=== PATIENT | male | born 1990 | race Caucasian/White ===

== ENCOUNTER 2022-08-04 13:31 | Outpatient (CLI) | payer OTHER, SELFPAY ==
--- NOTE | 2022-08-04 14:00 | CRLHL7_ITS ---
For Patients: As a result of the Century Cures Act, medical imaging exams and procedure reports are released immediately into your electronic medical record. You may view this report before your referring provider. If you have questions, please contact your health care provider. INDICATION: Left neck swelling. COMPARISON: None. TECHNIQUE: CT soft tissues neck with IV contrast. FINDINGS: A marker has been placed on the mobile homes repairer images on the left neck over the area of palpable abnormality. Correlating with the CT images (series 3, image 44) there is no evidence of a mass, cystic lesion or focal inflammatory change in the left neck. There is a small normal size level 5 lymph node which measures 9 mm in maximal diameter (series 3, image 43). There is uncertain if this can account for the palpable abnormality. Normal bilateral parotid and submandibular glands. Normal thyroid gland. Scattered small normal-sized cervical lymph nodes bilaterally. No supraclavicular or spina mediastinal adenopathy. Nasopharynx and oropharynx are clear. No inflammation within the parapharyngeal fat pads are Rich intradural space. Normal thickness of the epiglottis. Normal glottis with symmetric vocal cords. Lung apices are clear. Normal alignment of cervical spine. No prevertebral soft tissue swelling. Visualized paranasal sinuses and mastoid air cells are clear. IMPRESSION: 1. At the level of the marker on the left neck, there is no discrete mass or cystic lesion or focal inflammation. Small normal-sized left level 5 lymph node. 2. No adenopathy elsewhere. 3. Normal deep soft tissues of the neck. Please note that all CT scans at this facility use dose modulation, iterative reconstruction, and/or weight-based dosing when appropriate to reduce radiation dose to as low as reasonably achievable. Dictated by Lacho Maki MD @ 08/05/2022 12:25:54 PM (Electronically Signed)
== END 2022-08-04 13:32 | disposition home or self-care (01) ==
LOC: CT 13:31
PROVIDERS: PCP Family Medicine; Visit Provider Family Medicine
DX: R22.1 Localized swelling, mass and lump, neck (principal); R59.9 Enlarged lymph nodes, unspecified
CPT/HCPCS: 70491; Q9967

== ENCOUNTER 2023-08-01 14:00 | Outpatient (CLI) | payer OTHER, SELFPAY ==
--- OUTSIDE RECORDS SUMMARY | 2023-08-01 14:10 | XMS_ITS | Clinical Summary ---
Author Organization [facility] Address [place], [place] [address] Care Team Providers Care Transmission Calibration Engineer Name Role Phone Clinic, No Pcp Or Primary Care Provider Unavaila ble Allergies Active Allergy Reactions Criticality Noted Date Comments Sulfa (Sulfonamide Antibiotics) Visual Disturbances 01/02/2019 Eye drops Medications No known medications Immunizations Name Administration Dates Next Due Hepatitis B (Peds) 06/25/2005,12/25/2004 Tdap 06/17/2016 Social History Tobacco Use Types Packs/Day Years Used Date Smoking Tobacco: Never Smokeless Tobacco: Former Quit: 2018 Tobacco Cessation:Counseling Given: Yes Alcohol Use Standard Drinks/Week Comments Yes 0 (1 standard drink = 0.6 oz pur e alcohol) PHQ-2 Answer Date Recorded PHQ-2 TOTAL SCORE 0 03/24/2021 Social Connections Answer Date Recorded Frequency of Communication with Friends and Fami ly Not on file 03/24/2021 Financial Resource Strain Answer Date R ecorded Difficulty of Paying Living Expenses Not on file 03/24/2021 Difficulty of Paying Living Expenses Not on file 03/24/2021 Sex and Gender Information Value Date Recorded Sex Assigned at Not on file Gender Identity Not on file Sexual Orientation Not on file Obstetrics History Last Filed Vital Signs Vital Sign Reading Time Taken Comments Blood Pressure 130/90 02/01/2019 11:01 AM SUPERVISOR CASE LOADING Pulse 86 02/01/2019 11:01 AM SUPERVISOR CASE LOADING Temperature 36.7 ??C (98 ??F) 02/01/2019 10:58 AM SUPERVISOR CASE LOADING Respiratory Rate 16 01/02/2019 2:14 PM SUPERVISOR CASE LOADING Oxygen Saturation 97% 02/01/2019 10:58 AM SUPERVISOR CASE LOADING Inhaled Oxygen Concentration - - Weight 81.7 kg (180 lb 3.2 oz) 02/01/2019 10:58 AM SUPERVISOR CASE LOADING Height 164.5 cm (5' 4.76) 02/01/2019 10:[address] Body Mass Index 30.21 02/01/2019 10:58 AM SUPERVISOR CASE LOADING Plan of Treatment Health Maintenance Due Date Last Done Comments HIV for age 15-65 02/07/2007 Hepatitis C screening for ag e 18-79 02/07/2010 BMI (ht and wt on same day) for age 18+ 02/02/2020 02/01/2019 Depression screening for age 12+ 03/24/2022 03/24/19 22 COVID-19 vaccine series ( season) 2022 Influenza for age 9-49 10/23/2023 Tetanus booster 06/17/2026 06/17/2016 Tdap Completed 06/17/2016 Pneumococcal series for age 6-64 Aged Out No longer eligible based on patient's age to complete this topic Care Teams Transmission Calibration Engineer Relationship Specialty Start Date End Date Clinic, No Pcp Or . PCP - General 01/02/19
== END 2023-08-01 14:01 | disposition home or self-care (01) ==
LOC: NFLDREF 14:03
PROVIDERS: PCP Family Medicine; Visit Provider Registered Nurse
DX: Z01.818 Encounter for other preprocedural examination (principal); I10 Essential (primary) hypertension
CPT/HCPCS: 80053

== ENCOUNTER 2023-08-11 10:00 | Outpatient (CLI) | payer OTHER, SELFPAY ==
--- OUTSIDE RECORDS SUMMARY | 2023-08-11 10:02 | XMS_ITS | Clinical Summary ---
Author Organization [facility] Address [place], [place] [address] Care Team Providers Care Blending Kettle Tender Name Role Phone Clinic, No Pcp Or [...] Comments Blood Pressure 130/90 02/01/2019 11:01 AM MILK CONDENSER Pulse 86 02/01/2019 11:01 AM MILK CONDENSER Temperature 36.7 ??C (98 ??F) 02/01/2019 10:58 AM MILK CONDENSER Respiratory Rate 16 01/02/2019 2:14 PM MILK CONDENSER Oxygen Saturation 97% 02/01/2019 10:58 AM MILK CONDENSER Inhaled Oxygen Concentration - - Weight 81.7 kg (180 lb 3.2 oz) 02/01/2019 10:58 AM MILK CONDENSER Height 164.5 cm (5' 4.76) 02/01/2019 10:[address] Body Mass Index 30.21 02/01/2019 10:58 AM MILK CONDENSER Plan of Treatment Health Maintenance Due Date [...] age to complete this topic Care Teams Blending Kettle Tender Relationship Specialty Start Date End Date Clinic, No Pcp Or . PCP - General 01/02/19
--- NOTE | 2023-08-11 11:40 | W.ANESCHARGE ---
Anesthesia Charges Start Date/Time Anesthesia Start Date: 08/11/23 Anesthesia Start Time: 11:15 Stop Date/Time Anesthesia Stop Date: 08/11/23 Anesthesia Stop Time: 11:37
== END 2023-08-11 10:01 | disposition home or self-care (01) ==
LOC: OP CLINIC 10:01
PROVIDERS: PCP Family Medicine; Visit Provider Surgery
DX: R13.10 Dysphagia, unspecified (principal); K22.2 Esophageal obstruction
CPT/HCPCS: 00731; 43239; 43249; 88305; J2704; J3490

== ENCOUNTER 2024-01-02 06:31 | Outpatient (CLI) | payer OTHER, SELFPAY ==
--- OUTSIDE RECORDS SUMMARY | 2024-01-02 06:34 | XMS_ITS | Clinical Summary ---
Author Organization [facility] Address [place], [place] [address] Care Team Providers Care Crozer Operator Name Role Phone Clinic, No Pcp Or [...] Comments Blood Pressure 130/90 02/01/2019 11:01 AM FRESH WORK WRAPPER LAYER Pulse 86 02/01/2019 11:01 AM FRESH WORK WRAPPER LAYER Temperature 36.7 ??C (98 ??F) 02/01/2019 10:58 AM FRESH WORK WRAPPER LAYER Respiratory Rate 16 01/02/2019 2:14 PM FRESH WORK WRAPPER LAYER Oxygen Saturation 97% 02/01/2019 10:58 AM FRESH WORK WRAPPER LAYER Inhaled Oxygen Concentration - - Weight 81.7 kg (180 lb 3.2 oz) 02/01/2019 10:58 AM FRESH WORK WRAPPER LAYER Height 164.5 cm (5' 4.76) 02/01/2019 10:[address] Body Mass Index 30.21 02/01/2019 10:58 AM FRESH WORK WRAPPER LAYER Plan of Treatment Health Maintenance Due Date Last Done Comments HIV for age 15-65 02/07/2007 Hepatitis C screening for ag e 18-79 02/07/2010 BMI (ht and wt on same day) for age 18+ 02/02/2020 02/01/2019 Depression screening for age 12+ 03/24/2022 03/24/19 22 COVID-19 vaccine series (2023- season) 2023 Influenza for age 9-49 10/23/2023 Tetanus booster 06/17/2026 06/17/2016 Tdap Completed 06/17/2016 Pneumococcal series for age 6-64 Aged Out No longer eligible based on patient's age to complete this topic Care Teams Crozer Operator Relationship Specialty Start Date End Date Clinic, No Pcp Or . PCP - General 01/02/19
--- NOTE | 2024-01-02 07:32 | W.ANESCHARGE ---
Anesthesia Charges Start Date/Time Anesthesia Start Date: 01/02/24 Anesthesia Start Time: 07:13 Stop Date/Time Anesthesia Stop Date: 01/02/24 Anesthesia Stop Time: 07:29
--- NOTE | 2024-01-02 07:47 | W.ANESCHARGE ---
Anesthesia Charges Start Date/Time Anesthesia Start Date: 01/02/24 Anesthesia Start Time: 07:13 Stop Date/Time Anesthesia Stop Date: 01/02/24 Anesthesia Stop Time: 07:29
== END 2024-01-02 06:32 | disposition home or self-care (01) ==
LOC: OP CLINIC 06:32
PROVIDERS: PCP Family Medicine; Visit Provider Internal Medicine
DX: R13.10 Dysphagia, unspecified (principal)
CPT/HCPCS: 00731; 43239; 88305; J2704; J3490

== ENCOUNTER 2024-02-03 10:30 | Day surgery (SDC) | payer OTHER, SELFPAY ==
[2024-02-03] VITALS (11 sets, daily range): BP systolic 133–151; BP diastolic 82–104; PULSE 48–67; RESP 16–18; TEMP 36.4–37; O2SAT 96–98; BMI 30.8
[2024-02-03] MEDS: 0.9 % SODIUM CHLORIDE 500 ML 500 ML 100 ML IV (10:55)
[2024-02-03] MEDS: SODIUM CHLORIDE 0.9 % (FLUSH) 10 ML SYRINGE IVF (10:55)
[2024-02-03] MEDS: AYR SALINE NASAL GEL 1 APPLIC NOSTRIL-B (12:35)
[2024-02-03] MEDS: MUPIROCIN 1 GM PACKET 1 APPLIC TOPICAL (12:35)
[2024-02-03] MEDS: BUPIVACAINE 0.5%/EPINEPHRINE 0.9 MG (30.9 ML) INJECTION (12:35)
[2024-02-03] MEDS: COCAINE HCL 4 % 4 ML SOLUTION NOSTRIL-B (12:35)
--- NOTE | 2024-02-03 12:40 | W.PM.ENTPROC ---
Procedure Note Date of procedure: 02/03/24 Procedure: Preop diagnosis variable nasal obstruction, bilateral inferior turbinate hypertrophy, left area 2 septal deviation mild Postoperative diagnosis same Procedure intramural cautery inferior turbinates bilateral, revision nasal septoplasty Under general trach anesthesia patient was prepped draped usual fashion the nose decongested and injected. An incision was then made beneath the nasal valve area where there was thickened cartilage. A small flap was elevated and the cartilage shave which alleviated the obstruction of the nasal valve. The flap was laid back down and a Merocel pack placed over it. This was the flaps the left the size was approximately 6 x 8 mm. Both inferior turbinates were outfractured and the Coblation Wand used to cauterize intramurally at the anterior head inferior 10%. The patient procedure well was taken recovery in satisfactory condition blood loss 10 mL. Surgeon: Isaac Price MD
--- NOTE | 2024-02-03 12:52 | W.ANESCHARGE ---
Anesthesia Charges Start Date/Time Anesthesia Start Date: 02/03/24 Anesthesia Start Time: 12:13 Stop Date/Time Anesthesia Stop Date: 02/03/24 Anesthesia Stop Time: 12:53
--- NOTE | 2024-02-03 12:54 | W.ANESCHARGE ---
Anesthesia Charges Start Date/Time Anesthesia Start Date: 02/03/24 Anesthesia Start Time: 12:13 Stop Date/Time Anesthesia Stop Date: 02/03/24 Anesthesia Stop Time: 12:53
[2024-02-03] MEDS: fentaNYL 100 MCG/2 ML inj 50 MCG IVP (13:07)
[2024-02-03] MEDS: ACETAMINOPHEN 325 MG TABLET PO (13:26)
[2024-02-03] MEDS: IBUPROFEN 200 MG TABLET PO (13:27)
[2024-02-03] MEDS: OXYCODONE 5 MG TABLET PO (13:27)
== END 2024-02-03 14:06 | disposition home or self-care (01) ==
LOC: OR 10:32
PROVIDERS: PCP Family Medicine; Visit Provider Otolaryngology
PROC: (CPT 30520; principal; 2024-02-03 11:45)
DX: J34.2 Deviated nasal septum (principal); J34.3 Hypertrophy of nasal turbinates; J34.89 Other specified disorders of nose and nasal sinuses
CPT/HCPCS: 30520; 30140; 00160; A9270; J1100; J2250; J2405; J2704; J3010; J7030

== ENCOUNTER 2024-03-12 14:15 | Outpatient (CLI) | payer OTHER, SELFPAY ==
--- NOTE | 2024-03-20 11:31 | W.PM.SLEEP ---
Sleep Study Details Details Interpreting Provider: Albert Date of Sleep Study: 03/12/24 Sleep Study Details: STUDY TYPE:? Home unattended ? BMI:? 31.6 ORDERING PROVIDER:? Albert INDICATION:? Concern about sleep apnea ? SLEEP SUMMARY:? 384 minutes monitored RESPIRATORY SUMMARY:? AHI 15.5 Low oxygen 85 1.3% of study oxygen less than 90% Snoring 99.5% PERIODIC LIMB MOVEMENTS OF SLEEP:? Not recorded CARDIAC:? 42-93, mean 55.9 beats per minute IMPRESSION:? Moderate obstructive sleep apnea RECOMMENDATION: Treatment options include CPAP, dental appliance and/or airway expansion surgery.
== END 2024-03-12 14:16 | disposition home or self-care (01) ==
LOC: SLEEP 14:16
PROVIDERS: Visit Provider Otolaryngology
DX: G47.33 Obstructive sleep apnea (adult) (pediatric) (principal)
CPT/HCPCS: 95806